=== PATIENT | female | born 1965 | race Caucasian/White ===

== ENCOUNTER 2019-04-28 12:45 | Emergency (ER) | payer OTHER ==
[~2019-04-28] VITALS: Ht 152.4 cm; Wt 109.4 kg
[2019-04-28 12:55] VITALS: BP 139/97; Ht 152.4 cm; Wt 109.4 kg
== END 2019-04-28 17:18 | disposition home or self-care (01) ==
LOC: ED 12:45
DX: S16.1XXA Strain of muscle, fascia and tendon at neck level, initial encounter (principal); S09.8XXA Other specified injuries of head, initial encounter; R07.89 Other chest pain; E66.01 Morbid (severe) obesity due to excess calories; R42 Dizziness and giddiness; R11.10 Vomiting, unspecified; Z88.0 Allergy status to penicillin; V43.52XA Car driver injured in collision with other type car in traffic accident, initial encounter; Y93.I9 Activity, other involving external motion; Y92.488 Other paved roadways as the place of occurrence of the external cause; Y99.8 Other external cause status